=== PATIENT | male | born 1945 | race Two or more races ===

== ENCOUNTER 2017-01-06 12:47 | Emergency (ER) | payer OTHER, BC ==
--- NOTE | 2017-01-06 13:23 | PDOC ---
History of Present Illness - General Chief Complaint: Allergic Reaction Stated Complaint: ALLERGIC REACTION History Source: Patient Exam Limitations: No Limitations - History of Present Illness Initial Comments: 01/06/17 13:18 The patient is a 71M with a PMH of BPH, HTN, HLD, DM who presents to the ED from for an allergic reaction. The patient states that he went about his normal daily routine this morning, then around 1030 felt some a weird sensation in his tongue. He went to look in the mirror and saw that the R side of his tongue was swollen. He took a dose of "Aller-clear" and when that did not help, he proceeded to a local urgent care. They gave him benadryl, steroids, and an epi-pen then told him he needs to come to the ED for monitoring. THe patient currently states that he feels better, the swelling has gone down, but his tongue is still slightly swollen. He states the only new medication he took is a cipro for a UTI via his urologist. All: NKDA Past History - Past Medical History Allergies/Adverse Reactions: Allergies Allergy/AdvReac Type Severity Reaction Status Date / Time No Known Drug Allergies Allergy Verified 11/04/15 06:55 sulfamethoxazole Allergy Verified 01/06/17 13:39 [From Bactrim] trimethoprim [From Bactrim] Allergy Verified 01/06/17 13:39 Home Medications: Ambulatory Orders Simvastatin 40 mg PO Q48H 04/04/15 Ramipril 5 mg PO DAILY 11/04/15 Ciprofloxacin [Cipro (Restricted To Id)] 0 mg PO DAILY 01/06/17 Epinephrine (Epi-Pen 0.3MG) [Epipen 0.3MG -] 0.3 mg IM ASDIR #2 pens 01/06/17 Linagliptin/Metformin HCl [Jentadueto 2.5 mg-1000 mg Tab] 1 each PO DAILY Prednisone [Prednisone 50 MG TABLETS] 40 mg PO ONCE #3 tablet 01/06/17 Anemia: No Asthma: No Cancer: Yes (PROSTATE AND BLADDER) Cardiac Disorders: No CVA: No COPD: No CHF: No Dementia: No Diabetes: Yes (NIDDM X 3 MOS) GI Disorders: No Disorders: Yes HTN: Yes Hypercholesterolemia: No Liver Disease: No Seizures: No Thyroid Disease: No - Surgical History Abdominal Surgery: No Appendectomy: No Cardiac Surgery: No Cholecystectomy: No GI Surgery: Yes (bladder) Lung Surgery: No Neurologic Surgery: No Orthopedic Surgery: Yes - Psycho/Social/Smoking Cessation Hx Suicidal Ideation: No Smoking History: Never smoked Have you smoked in the past 12 months: No Hx Alcohol Use: No Drug/Substance Use Hx: No Substance Use Type: None Hx Substance Use Treatment: No Review of Systems - Review of Systems Able to Perform ROS?: Yes Is the patient limited Thai proficient: No Constitutional: No: Chills, Fever HEENTM: Yes: Other (R sided tongue swelling). No: Blurred Vision Respiratory: No: Shortness of Breath, Stridor, Wheezing, Productive cough Cardiac (ROS): No: Chest Pain, Irregular Heart Rate ABD/GI: No: Nausea, Vomiting : Yes: See HPI Neurological: No: Headache, Numbness, Tingling, Weakness *Physical Exam - Physical Exam General Appearance: Yes: Nourished, Appropriately Dressed. No: Apparent Distress HEENT: positive: Normal Voice, Hearing Grossly Normal, Other (R sided lateral ) Neck: positive: Trachea midline. negative: Tender, Lymphadenopathy (R), Lymphadenopathy (L), Rigidity, Tender lateral, Tender midline Respiratory/Chest: positive: Lungs Clear, Normal Breath Sounds. negative: Chest Tender, Respiratory Distress, Decreased Breath Sounds, Crackles, Rales, Rhonchi, Stridor, Wheezing Cardiovascular: positive: Regular Rhythm, Regular Rate, S1, S2. negative: Bradycardia, Tachycardia, Diastolic Murmur, Systolic Murmur Gastrointestinal/Abdominal: positive: Flat. negative: Tender, Protuberent, Distended, Guarding, Rebound, Tenderness Extremity: negative: Pelvis Stable, Coldness, Cyanosis, Swelling, Calf Tenderness Integumentary: positive: Dry, Warm. negative: Cold, Clammy Neurologic: positive: Fully Oriented, Alert, Normal Mood/Affect, Motor Strength 5/5 Heart Score/ECG Review - ECG Intrepretation Rhythm: Regular Rhythm (w/ PVC's) - ECG Impressions Normal ECG: Yes Medical Decision Making - Medical Decision Making 01/06/17 13:24 The patient is a 71M with a PMH of HTN, HLD, DM, and BPH who presents with a suspected allergic reaction to cipro. He is currently stable, VS WNL, and is placed on a monitor. We informed the patient that we will monitor him for at least 4-6 hours. He agrees to this plan. *DC/Admit/Observation/Transfer Diagnosis at time of Disposition: Allergic angioedema Qualifiers: Encounter type: initial encounter Qualified Code(s): T78.3XXA - Angioneurotic edema, initial encounter - Discharge Dispostion Disposition: HOME Condition at time of disposition: Improved Admit: No - Prescriptions Prescriptions: Epinephrine (Epi-Pen 0.3MG) [Epipen 0.3MG -] 0.3 mg IM ASDIR #2 pens Prednisone [Prednisone 50 MG TABLETS] 40 mg PO ONCE #3 tablet - Patient Instructions Printed Discharge Instructions: DI for Adverse Drug Reaction -- Allergic Additional Instructions: Please return to the ER if symptoms persist, worsen, or if new symptoms arise. Please follow up with your PCP as soon as possible. Use epi-pen as prescribed for allergic reactions that are severe. Take prednisone for once a day for 3 days. - Attestations Physician Attestion: 01/06/17 17:29 I, Dr. Moisés Stewart, attest that this document has been prepared under my direction and personally reviewed by me in its entirety. I further attest, that it accurately reflects all work, treatment, procedures and medical decision -making performed by me.
--- NOTE | 2017-01-06 13:42 | PDOC ---
Attending Attestation - HPI HPI: 01/06/17 13:42 Patient is a 71 year old male with past medical history of Diabetes, recurring UTIs presenting to the ED with complaints of right tongue and face swelling starting 2.5 hours prior to arrival. Patient reports slight alleviation after steroid injection by EMS. He reports slight fullness in throat. Patient states being on 6th day of Cipro antibiotic for UTI. Patient also states taking Ramipril (10mg) and Simvastatin (40mg). He reports taking benedryl at 11 :15am. Patient reports being urinary incontinent. Denies any difficulty breathing. Denies fever, chills, vomiting. Denies headache, dizziness, chest pain. Denies any other symptoms. - Physicial Exam PE: 01/06/17 13:42 GENERAL: Awake, alert, and fully oriented, in no acute distress HEAD: No signs of trauma EYES: PERRLA, EOMI, sclera anicteric, conjunctiva clear ENT: +Right lateral tongue swelling. No uvular edema Auricles normal inspection, nares patent, Moist mucosa NECK: No stridor. Normal ROM, supple, no lymphadenopathy, JVD, or masses LUNGS: Breath sounds equal, clear to auscultation bilaterally. No wheezes, and no crackles HEART: Regular rate and rhythm, normal S1 and S2, no murmurs, rubs or gallops ABDOMEN: Soft, nontender, normoactive bowel sounds. No guarding, no rebound. No masses EXTREMITIES: Normal range of motion, no edema. No clubbing or cyanosis. No cords, erythema, or tenderness NEUROLOGICAL: Normal speech. Neuro AAOx3 SKIN: Warm, Dry, normal turgor, no rashes or lesions noted. - Medical Decision Making 01/06/17 13:43 Documentation prepared by Santosh Carrillo, acting as emergency medical technician for Estephanie Andino MD. <Santosh Carrillo - Last Filed: 01/06/17 13:42> - Resident Resident Name: Moisés Stewart - ED Attending Attestation I have performed the following: I have examined & evaluated the patient, The case was reviewed & discussed with the resident, I agree w/resident's findings & plan, Exceptions are as noted - Medical Decision Making 01/06/17 17:24 71 yo M with h/o allergic reaction after taking cipro for 6 days for uti, also takes ramipril. was seen at urgent care. given solumedral pepcid an benadryl and subcut epinephrine. feeling better but still minimal tongue swelling on presentation. on exam awake alert lungs clear no wheeze , heart rrr no mr/g abd soft NT no rash on skin plan : observe. will redose benadryl. dc cipro. consider dc ramipril. 01/06/17 17:31 pt tongue no residual swelling voice clear. lungs clear. will dc with steroids and benadryl. given rx for epe pen. tried to call pt pcp for close followup regarding replacing ramipril although estephania from cipro. no answer at dr dawn. <Estephanie Andino - Last Filed: 01/06/17 17:32>
[2017-01-06 14:26] VITALS: BP 147/99; PULSE 98; TEMP 98.2; BMI 23.0
--- NOTE | 2017-01-07 11:15 | EKG ---
Test Reason : Blood Pressure : / mmHG Vent. Rate : 098 BPM Atrial Rate : 098 BPM P-R Int : 166 ms QRS Dur : 076 ms QT Int : 346 ms P-R-T Axes : 006 031 018 degrees QTc Int : 441 ms POOR DATA QUALITY, INTERPRETATION MAY BE ADVERSELY AFFECTED SINUS RHYTHM WITH OCCASIONAL PREMATURE VENTRICULAR COMPLEXES OTHERWISE NORMAL ECG WHEN COMPARED WITH ECG OF 09-SEP-2015 09:17, PREMATURE VENTRICULAR COMPLEXES ARE NOW PRESENT NONSPECIFIC T WAVE ABNORMALITY NO LONGER EVIDENT IN LATERAL LEADS Confirmed by ALENA BECERRA, KARISSA ([id number]) on 01/07/2017 11:15:20 AM Referred By: Confirmed By:KARISSA CARVAJAL MD
== END 2017-01-06 17:44 | disposition home or self-care (01) ==
LOC: JER 12:47
PROC: 3E033GC Introduction of Other Therapeutic Substance into Peripheral Vein, Percutaneous Approach (ICD-10-PCS; principal; 2017-01-06)
DX: T78.3XXA Angioneurotic edema, initial encounter (principal); T36.8X5A Adverse effect of other systemic antibiotics, initial encounter; Y92.89 Other specified places as the place of occurrence of the external cause; I10 Essential (primary) hypertension; E11.9 Type 2 diabetes mellitus without complications; Z79.84 Long term (current) use of oral hypoglycemic drugs; Z85.46 Personal history of malignant neoplasm of prostate; Z85.51 Personal history of malignant neoplasm of bladder
CPT/HCPCS: 93005; 93010; 96374; 99282-25